=== PATIENT | male | born 1940 ===

== ENCOUNTER 2022-09-03 20:43 | Outpatient (REF) | payer MEDICARE, SELFPAY ==
[2022-09-03 20:48] LABS: Abs Immature Grans 0.01 10^3/uL (0.0-0.06); Absolute Basophil Count 0.04 10^3/uL (0.0-0.2); Absolute Eosinophil Count 0.42 10^3/uL (0.0-0.7); Absolute Lymphocyte Count 3.07 10^3/uL (1.2-3.4); Absolute Monocyte Count 0.66 10^3/uL (0.1-0.8); Absolute Neutrophil Count 3.39 10^3/uL (1.2-6.7); Basophils % 0.5; Eosinophils % 5.5; HCT 37.8 % (40.0-50.0); HGB 13.3 g/dL (13.5-17.5); Immature Grans % 0.1; Lymphocytes % 40.4; MCH 31.7 pg (27.0-33.0); MCHC 35.2 % (32.0-36.0); MCV 90 fL (80-95); MPV 10.9 fL (8.0-11.0); Monocytes % 8.7; Neutrophils % 44.8; Platelet Count 185 10^3/uL (130-400); RDW 13.1 % (11.8-14.1); RDW-SD 42.6 fL; WBC 7.59 10^3/uL (4.4-10.8)
[2022-09-03 20:56] LABS: Anion Gap 6.8 mmol/L (3-11); BUN 27 mg/dL (7-18); CO2 29.2 mmol/L (21.0-32.0); CREATININE 1.3 mg/dL (0.70-1.30); Calcium 9.5 mg/dL (8.5-10.1); Chloride 100 mmol/L (98-107); Estimated GFR 54.17 (mL/min/1.73m2); Glucose 191 mg/dL (74-106); Sodium 136 mmol/L (136-145)
[2022-09-03 21:21] LABS: Hemoglobin A1C 7.6 % (<5.7)
== END 2022-09-03 20:44 | disposition home or self-care (01) ==
LOC: NCHCN 20:43
PROVIDERS: Visit Provider Family Medicine
DX: E11.9 Type 2 diabetes mellitus without complications (principal); C61 Malignant neoplasm of prostate; N40.1 Benign prostatic hyperplasia with lower urinary tract symptoms
CPT/HCPCS: 80048; 83036; 85025

== ENCOUNTER 2022-12-10 21:11 | Outpatient (REF) | payer MEDICARE, SELFPAY ==
[2022-12-10 21:19] LABS: Anion Gap 8.1 mmol/L (3-11); BUN 24 mg/dL (7-18); CO2 28.9 mmol/L (21.0-32.0); CREATININE 1.3 mg/dL (0.70-1.30); Calcium 9.6 mg/dL (8.5-10.1); Chloride 101 mmol/L (98-107); Estimated GFR 54.17 (mL/min/1.73m2); Glucose 213 mg/dL (74-106); Potassium 4.8 mmol/L (3.5-5.1); Sodium 138 mmol/L (136-145)
== END 2022-12-10 21:12 | disposition home or self-care (01) ==
LOC: NCHCN 21:11
PROVIDERS: Visit Provider Family Medicine
DX: R39.9 Unspecified symptoms and signs involving the genitourinary system (principal); A41.9 Sepsis, unspecified organism; R79.89 Other specified abnormal findings of blood chemistry; E11.9 Type 2 diabetes mellitus without complications
CPT/HCPCS: 80048

== ENCOUNTER 2023-02-11 17:24 | Outpatient (REF) | payer MEDICARE, SELFPAY | END 2023-02-11 17:25 | disposition home or self-care (01) | LOC: NCHCN 17:24 | PROVIDERS: Visit Provider Family Medicine | DX: R39.89 Other symptoms and signs involving the genitourinary system (principal); R82.998 Other abnormal findings in urine | CPT/HCPCS: 87077; 87086; 87186 ==

== ENCOUNTER 2023-10-08 16:57 | Outpatient (REF) | payer MEDICARE, SELFPAY ==
[2023-10-08 21:48] LABS: COMMENT (LAB VIEW ONLY) 59.09 mg/dL
[2023-10-08 21:52] LABS: Microalb ug/mg Crea 774.1 ug/mg Cr
== END 2023-10-08 16:58 | disposition home or self-care (01) ==
LOC: NCHCN 16:57
PROVIDERS: PCP Family Medicine; Visit Provider Family Medicine
DX: E11.9 Type 2 diabetes mellitus without complications (principal); I10 Essential (primary) hypertension
CPT/HCPCS: 82043; 82570